=== PATIENT | male | born 1955 | race Caucasian/White ===

== ENCOUNTER → 2021-06-07 | Outpatient (CLI) | payer OTHER ==
[2021-06-07 07:45] LABS: BASO # 0.03 K/mm3 (0.02-0.10); EOS # 0.14 K/mm3 (0.04-0.40); EOS % 1.8 % (0.0-4.0); HEMOGLOBIN 15.5 g/dL (13.5-18.0); LYMPH# 2.21 K/mm3 (1.50-4.00); MEAN CELL VOLUME 86 fl (78-100); MEAN CORPUSCULAR HEMOGLOBIN 28 pg (27-31); MEAN CORPUSCULAR HGB CONC 33 g/dL (33-37); MEAN PLATELET VOLUME 9.9 fl (7.4-10.4); MONO # 0.78 K/mm3 (0.20-0.80); PLATELET COUNT 268 K/mm3 (130-400); RED CELL DISTRIBUTION WIDTH 12.6 % (11.5-14.5); WHITE BLOOD COUNT 7.9 K/mm3 (4.8-10.8)
[2021-06-07 09:01] LABS: ALBUMIN 4.2 g/dL (3.4-4.8); POTASSIUM 4.9 mmol/L (3.5-5.1)
[2021-06-07 09:02] LABS: CALCIUM 9.8 mg/dL (8.3-10.5)
[2021-06-07 09:06] LABS: TOTAL BILIRUBIN 0.8 mg/dL (0.2-1.2)
[2021-06-07 09:54] LABS: ERYTHROCYTE SEDIMENTATION RATE 3 mm/hr (0-20)
[2021-06-07 18:21] LABS: TESTOSTERONE 198 ng/dL (221-716)
== END ==
LOC: LAB 06:12
PROVIDERS: Internal Medicine
DX: Z00.00 Encounter for general adult medical examination without abnormal findings (principal)

== ENCOUNTER → 2021-06-13 | Outpatient (CLI) | payer OTHER ==
[2021-06-14 00:11] LABS: FOLLICLE STIMULATING HORMONE 7.3 mIU/mL (1.0-12.0); LUTENIZING HORMONE 1.7 mIU/mL (0.6-12.1)
== END ==
LOC: LAB 09:21
PROVIDERS: Internal Medicine
DX: Z00.00 Encounter for general adult medical examination without abnormal findings (principal)

== ENCOUNTER → 2021-08-04 | Outpatient (CLI) | payer OTHER | LOC: LAB 11:13 | DX: F11.20 Opioid dependence, uncomplicated (principal) ==

== ENCOUNTER → 2021-11-01 | Outpatient (CLI) | payer OTHER ==
[2021-11-01 08:35] LABS: BASO # 0.02 K/mm3 (0.02-0.10); EOS # 0.12 K/mm3 (0.04-0.40); EOS % 1.5 % (0.0-4.0); HEMATOCRIT 49.9 % (42.0-52.0); HEMOGLOBIN 16.2 g/dL (13.5-18.0); LYMPH# 1.91 K/mm3 (1.50-4.00); MEAN CELL VOLUME 84 fl (78-100); MEAN CORPUSCULAR HEMOGLOBIN 27 pg (27-31); MEAN CORPUSCULAR HGB CONC 33 g/dL (33-37); MEAN PLATELET VOLUME 9.6 fl (7.4-10.4); MONO # 0.75 K/mm3 (0.20-0.80); NEU # 5.22 K/mm3 (1.40-6.50); PLATELET COUNT 256 K/mm3 (130-400); RED BLOOD COUNT 5.97 M/mm3 (4.20-5.60); RED CELL DISTRIBUTION WIDTH 13.5 % (11.5-14.5)
[2021-11-01 08:54] LABS: ALBUMIN 4.4 g/dL (3.4-4.8); POTASSIUM 4.3 mmol/L (3.5-5.1)
[2021-11-01 08:55] LABS: CALCIUM 9.5 mg/dL (8.3-10.5)
[2021-11-01 08:56] LABS: TOTAL PROTEIN 6.9 g/dL (6.2-8.1)
[2021-11-01 08:58] LABS: TOTAL BILIRUBIN 0.5 mg/dL (0.2-1.2)
[2021-11-01 22:59] LABS: TESTOSTERONE 320 ng/dL (221-716)
== END ==
LOC: LAB 08:15
PROVIDERS: Internal Medicine
DX: I10 Essential (primary) hypertension (principal); E23.0 Hypopituitarism; K90.9 Intestinal malabsorption, unspecified

== ENCOUNTER → 2022-01-13 | Outpatient (CLI) | payer OTHER | LOC: RAD 08:12 | DX: M19.011 Primary osteoarthritis, right shoulder (principal); S49.91XA Unspecified injury of right shoulder and upper arm, initial encounter ==

== ENCOUNTER → 2022-09-07 | Outpatient (CLI) | payer OTHER | LOC: CARDREHAB 07:47 | DX: G47.19 Other hypersomnia (principal) | CPT/HCPCS: G0399 ==

== ENCOUNTER → 2022-11-27 | Outpatient (CLI) | payer OTHER | LOC: LAB 08:46 | DX: I10 Essential (primary) hypertension (principal); G89.29 Other chronic pain; E78.2 Mixed hyperlipidemia; K21.9 Gastro-esophageal reflux disease without esophagitis; E23.0 Hypopituitarism; K90.9 Intestinal malabsorption, unspecified; E55.9 Vitamin D deficiency, unspecified; F11.20 Opioid dependence, uncomplicated; G47.33 Obstructive sleep apnea (adult) (pediatric) ==

== ENCOUNTER → 2023-07-12 | Outpatient (CLI) | payer OTHER ==
[2023-07-12 11:31] LABS: BASO # 0.03 K/mm3 (0.02-0.10); EOS # 0.11 K/mm3 (0.04-0.40); EOS % 1.3 % (0.0-4.0); HEMATOCRIT 55.9 % (42.0-52.0); HEMOGLOBIN 17.8 g/dL (13.5-18.0); LYMPH# 1.61 K/mm3 (1.50-4.00); MEAN CELL VOLUME 90 fl (78-100); MEAN CORPUSCULAR HEMOGLOBIN 29 pg (27-31); MEAN CORPUSCULAR HGB CONC 32 g/dL (33-37); MEAN PLATELET VOLUME 9.6 fl (7.4-10.4); MONO # 0.95 K/mm3 (0.20-0.80); PLATELET COUNT 261 K/mm3 (130-400); RED BLOOD COUNT 6.24 M/mm3 (4.20-5.60); WHITE BLOOD COUNT 8.5 K/mm3 (4.8-10.8)
[2023-07-12 11:34] LABS: ALBUMIN 4.3 g/dL (3.4-4.8)
[2023-07-12 11:35] LABS: CALCIUM 9.1 mg/dL (8.3-10.5)
[2023-07-12 11:39] LABS: TOTAL BILIRUBIN 0.9 mg/dL (0.2-1.2)
[2023-07-12 11:43] LABS: MAGNESIUM 2.2 mg/dL (1.60-2.60)
[2023-07-12 13:06] LABS: ERYTHROCYTE SEDIMENTATION RATE 0 mm/hr (0-20)
[2023-07-12 21:47] LABS: HEPATITIS C VIRUS ANTIBODY Negative (Negative)
[2023-07-13 14:58] LABS: TESTOSTERONE 1056 ng/dL (221-716)
== END ==
LOC: LAB 10:56
PROVIDERS: Internal Medicine
DX: Z12.5 Encounter for screening for malignant neoplasm of prostate (principal); Z12.11 Encounter for screening for malignant neoplasm of colon; Z11.59 Encounter for screening for other viral diseases; I10 Essential (primary) hypertension; G89.29 Other chronic pain; E78.2 Mixed hyperlipidemia; K21.9 Gastro-esophageal reflux disease without esophagitis; E23.0 Hypopituitarism; K90.9 Intestinal malabsorption, unspecified; E55.9 Vitamin D deficiency, unspecified; F11.20 Opioid dependence, uncomplicated; G47.33 Obstructive sleep apnea (adult) (pediatric)

== ENCOUNTER → 2023-07-16 | Outpatient (CLI) | payer OTHER | LOC: LAB 08:59 | DX: Z12.5 Encounter for screening for malignant neoplasm of prostate (principal); Z12.11 Encounter for screening for malignant neoplasm of colon; Z11.59 Encounter for screening for other viral diseases; I10 Essential (primary) hypertension; G89.29 Other chronic pain; E78.2 Mixed hyperlipidemia; K21.9 Gastro-esophageal reflux disease without esophagitis; E23.0 Hypopituitarism; K90.9 Intestinal malabsorption, unspecified; E55.9 Vitamin D deficiency, unspecified; F11.20 Opioid dependence, uncomplicated; G47.33 Obstructive sleep apnea (adult) (pediatric) ==

== ENCOUNTER → 2024-03-03 | Outpatient (CLI) | payer OTHER, MEDICARE | LOC: LAB 11:03 | DX: Z76.89 Persons encountering health services in other specified circumstances (principal) ==

== ENCOUNTER → 2024-09-08 | Outpatient (CLI) | payer OTHER ==
[2024-09-08 17:18] LABS: BASO # 0.02 K/mm3 (0.02-0.10); EOS # 0.09 K/mm3 (0.04-0.40); EOS % 0.9 % (0.0-4.0); HEMATOCRIT 59.6 % (42.0-52.0); HEMOGLOBIN 19.1 g/dL (13.5-18.0); LYMPH# 2.24 K/mm3 (1.50-4.00); MEAN CELL VOLUME 90 fl (78-100); MEAN CORPUSCULAR HEMOGLOBIN 29 pg (27-31); MEAN CORPUSCULAR HGB CONC 32 g/dL (33-37); MONO # 0.93 K/mm3 (0.20-0.80); NEU # 6.63 K/mm3 (1.40-6.50); PLATELET COUNT 149 K/mm3 (130-400); RED BLOOD COUNT 6.62 M/mm3 (4.20-5.60); RED CELL DISTRIBUTION WIDTH 13.7 % (11.5-14.5)
[2024-09-08 17:26] LABS: ALBUMIN 4.7 g/dL (3.4-4.8)
[2024-09-08 17:28] LABS: CALCIUM 9.9 mg/dL (8.3-10.5)
[2024-09-08 17:31] LABS: TOTAL BILIRUBIN 1.1 mg/dL (0.2-1.2)
[2024-09-08 17:35] LABS: MAGNESIUM 2.04 mg/dL (1.60-2.60)
[2024-09-09 19:20] LABS: TESTOSTERONE 1009 ng/dL (221-716)
== END ==
LOC: LAB 16:52
PROVIDERS: Internal Medicine
DX: Z12.5 Encounter for screening for malignant neoplasm of prostate (principal); Z12.11 Encounter for screening for malignant neoplasm of colon; I10 Essential (primary) hypertension; E78.2 Mixed hyperlipidemia; E23.0 Hypopituitarism; K90.9 Intestinal malabsorption, unspecified; R73.9 Hyperglycemia, unspecified

== ENCOUNTER → 2024-09-18 | Outpatient (CLI) | payer MEDICARE | LOC: LAB 07:00 | DX: Z12.11 Encounter for screening for malignant neoplasm of colon (principal) ==